=== PATIENT | female | born 1980 | race African-American/Black ===

== ENCOUNTER 2021-10-27 15:15 | Outpatient (RCR) | payer OTHER, SELFPAY ==
--- NOTE | 2021-10-27 17:37 | PTOPEVAL ---
PHYSICAL THERAPY EVALUATION AND PLAN OF CARE Thank you for referring Sebas Landon to [facility].? The patient is scheduled to be seen for therapy? every other week for 6 weeks (3visits). Please review, sign, date and return this plan of care MAGALY. I agree with and certify that the following plan of care is medically necessary. Referring Physician Date Attending Provider: Elizabeth Godfrey Diagnosis low back pain, chronic Onset 04/2021 Subjective Information States low back pain Query Text:As Reported By Patient/ persistenting for about a year Family . States that around that time she started a parts manager job working for [employer] and she states she is standing for long periods of time. States there is a lot of tightness in the lower back. Bending over forward helps it to feel like there is a relief. States she also has symptoms in her left leg that start at the hip and goes to the left knee. Will sometimes experience the tightness in the low back and the leg pain at the same time. The leg pain occurs most often when laying on either side. Spine, Lumbar Reported Pain Level 3 Pain Description Tightness Pain Frequency Chronic,Continuous Greatest Pain Intensity 7 Additional Pain Comments the left leg pain can be as high as 8/10. Water Modality Lumbar ROM Lumbar Flexion Active Floor Query Text:Hands to: Lumbar Extension (0-40) 15 Query Text:Active in Degrees Lumbar Comments hinging at L3 with limited motion below L3 Gross Lower Extremity Range of Motion left hip internal rotation Comments limited compared to right, nonpainful Hip Strength Left Hip Flexion Strength 4 Good Hip Extension Strength 3+ Fair + Hip Abduction Strength 3+ Fair + Hip Adduction Strength 3+ Fair + Hip Strength Comments single leg stand: left SLS falls into a hip drop while right maintains neutral position Right Hip Flexion Strength 5 Normal Hip Extension Strength 4 Good Hip Abduction Strength
--- NOTE | 2021-11-13 16:30 | PCPTNOTE ---
Patient did not show up for scheduled appointment this date; called patient who stated she forgot about appointment. Patient stated she left a voicemail yesterday to have notes sent to MD verified with front desk clerk stating they resent evaluation notes to ordering MD again yesterday. Reminded on next appointment 11/27 @ 4pm
--- NOTE | 2021-12-11 16:14 | PCPTNOTE ---
Patient did not show up for scheduled appointment this date.
--- NOTE | 2021-12-11 16:14 | PCPTNOTE ---
PHYSICAL THERAPY DISCHARGE NOTE Attending Provider: Elizabeth Godfrey Patient:Sebas Landon Date of :1980 Patient has not returned for any further treatments since 10/27/2021, therefore will be discharged at this time. Patient?s initial visit was on 10/27/2021 and had a total of 1 visit. [facility]. Please review, sign, date and return this discharge summary MAGALY. I have been updated about the patient's current status and I agree with discharge from the above service at this time. Referring Physician Date
== END 2021-12-12 08:39 | disposition home or self-care (01) ==
LOC: ANHPT 15:15
PROVIDERS: PCP Hospitalist
DX: M54.41 Lumbago with sciatica, right side (principal)
CPT/HCPCS: 97110; 97162

== ENCOUNTER → 2021-12-10 13:11 | Outpatient (CLI) | payer OTHER, SELFPAY ==
--- NOTE | ~2021-12-10 | XR_ITS ---
EXAMINATION: XR hip LT min 2V INDICATION: Left hip and flank pain TECHNIQUE: Two views of the left hip are obtained. COMPARISON: None available FINDINGS: There is mild osteoarthritis of the left hip. Phleboliths are noted in the pelvis. Bone ali gnment is normal. There is no fracture. IMPRESSION: 1. Mild osteoarthritis of the hip. Reviewed, dictated and finalized at location B.
--- NOTE | ~2021-12-10 | XR_ITS ---
EXAMINATION: XR lumbar spine min 4V DATE: 12/10/2021 13:54 INDICATION: Chronic back pain TECHNIQUE: Anteroposterior, lateral, and bilateral oblique views of the lumbar spine, and cone-down l ateral view of the lumbosacral junction were obtained. COMPARISON: None. FINDINGS: There are 2 mm of anterolisthesis of L4 on L5. The vertebral body heights are maintained. T here is moderate facet osteoarthritis of the lower lumbar spine. The intervertebral disc space height s are normal. IMPRESSION: 1. Moderate facet osteoarthritis of the lower lumbar spine without acute findings. Reviewed, dictated and finalized at location B. IMPRESSION: 1. Moderate facet osteoarthritis of the lower lumbar spine without acute findin .
== END ==
DX: R10.9 Unspecified abdominal pain (principal); G89.29 Other chronic pain; M54.42 Lumbago with sciatica, left side; M16.0 Bilateral primary osteoarthritis of hip; M47.896 Other spondylosis, lumbar region
CPT/HCPCS: 72110; 73502

== ENCOUNTER 2022-01-30 09:04 | Emergency (ER) | payer OTHER, SELFPAY ==
[2022-01-30] VITALS (19 sets, daily range): BP systolic 110–124; BP diastolic 68–74; PULSE 65–84; RESP 11–18; TEMP 37.1; O2SAT 99–100
--- NOTE | ~2022-01-30 | XR_ITS ---
EXAMINATION: XR chest 2V DATE: 01/30/2022 09:30 INDICATION: Chest pain TECHNIQUE: PA and lateral views of the chest are obtained. COMPARISON: None available FINDINGS: The lungs are free of acute opacities. No pleural effusion or pneumothorax. The cardiomedia stinal silhouette is normal. There is mild thoracic spondylosis. IMPRESSION: 1. No acute cardiopulmonary abnormality. Reviewed, dictated and finalized at location B.
--- NOTE | 2022-01-30 09:07 | ECG_ITS ---
Measurements Intervals [place] Rate: 77 P: 44 TX: 160 QRS: 21 QRSD: 78 T: 45 QT: 379 QTc: 429 Interpretive Statements SINUS RHYTHM NORMAL ELECTROCARDIOGRAM NO PREVIOUS ECG AVAILABLE FOR COMPARISON Electronically Signed On 01-30-2022 12:51:25 CDT by Jluis Kaba M.D.
[2022-01-30] MEDS: ASPIRIN 81 MG CHEWABLE TABLET 324 MG PO (09:22)
[2022-01-30 09:23] LABS: Basophils Percent Auto 0.3 % (0.2-1.2); Eosinophils Absolute Auto 0.4 K/mm3 (0-0.3); Hematocrit 41.1 % (37.0-47.0); Hemoglobin 13.3 g/dL (12.0-15.0); Immature Granulocyte Absolute 0.02 K/mm3 (0.00-0.031); Immature Granulocyte Percent A 0.3 % (0-0.5); Lymphocytes Absolute Auto 1.58 K/mm3 (0.9-3.2); Lymphocytes Percent Auto 27.2 % (18.3-44.2); Mean Corpuscular HGB Conc 32.4 g/dl (32-36); Mean Corpuscular Hemoglobin 28.1 pg (26-34); Mean Corpuscular Volume 86.9 fl (80-100); Mean Platelet Volume 9.5 fl (7.4-10.4); Monocytes Absolute Auto 0.4 K/mm3 (0.1-0.6); Monocytes Percent Auto 6.9 % (2.6-8.5); Neutrophils Absolute Auto 3.4 K/mm3 (1.3-6.7); Neutrophils Percent Auto 59.3 % (45.5-73.1); Platelet Count Result 303 k/mm3 (150-375); Red Blood Count 4.73 M/mm3 (4.2-5.4); Red Cell Distribution Width 13.9 % (11.5-14.5); White Blood Count 5.8 K/mm3 (4.5-10.0)
[2022-01-30 09:35] LABS: INR 1.2; Prothrombin Time 14.3 Seconds (11.1-14.7)
[2022-01-30 09:36] LABS: Partial Thromboplastin Time 27.7 SECONDS (22.3-36.8)
[2022-01-30 09:49] LABS: Alanine Aminotransferase 15 U/L (6-35); Albumin Level 4.1 g/dL (3.5-5.1); Alkaline Phosphatase 93 U/L (38-126); Anion Gap 8 mmol/L (8-16); Aspartate Amino Transferase 19 U/L (14-36); Bilirubin,Total 0.3 mg/dL (0.2-1.3); Blood Urea Nitrogen 14 mg/dL (7-17); Calcium 8.6 mg/dL (8.4-10.2); Carbon Dioxide 25 mmol/L (22-30); Chloride 103 mmol/L (98-107); Estimated CRCL calculation 110 ml/min; Estimated Glomerular Filt Rate > 60; Glucose 101 mg/dL (65-110); Lipase 46 U/L (23-300); Potassium 4.4 mmol/L (3.4-5.0); Sodium 136 mmol/L (137-145)
[2022-01-30 10:01] LABS: Troponin I < 0.012 ng/mL (0.000-0.034)
[2022-01-30] MEDS: KETOROLAC 15 MG/ML VIAL (*BKC) IV PUSH (11:13)
--- NOTE | 2022-01-30 11:38 | PC.NURSE ---
Assumed pt from PIO Lara
[2022-01-30 12:50] LABS: Troponin I < 0.012 ng/mL (0.000-0.034)
--- NOTE | 2022-01-30 13:38 | ED.CHESTPAIN ---
HPI - Chest Pain General Chief Complaint: Chest Pain Stated Complaint: chest pain Time Seen by Provider: 01/30/22 09:06 History of Present Illness HPI narrative: Patient is a 41-year-old female who presents ER with left-sided chest pain. Began early this morning around 7:30 AM. Aching and nonradiating. No exertional component. Has not found any aggravating or alleviating factors. No burning reflux. No diaphoresis/shortness of breath/nausea/vomiting. No family history of heart disease. No personal history of heart disease. Related Data Allergies Allergy/AdvReac Type Severity Reaction Status Date / Time shellfish derived Allergy Itching Verified 01/30/22 09:14 Review of Systems Review of Systems: All systems reviewed & are unremarkable except as noted in HPI and below Constitutional: Constitutional: Denies chills, Denies fatigue and Denies fever(s) ENT: Denies nasal congestion and Denies sore throat Cardiovascular: Cardiovascular: Reports chest pain, Denies rapid heart rate and Denies radiating jaw, neck or arm pain Respiratory: Respiratory: Denies cough, Denies dyspnea and Denies wheezing Gastrointestinal: Gastrointestinal: Denies abdominal pain, Denies nausea and Denies vomiting Neurologic: Denies focal weakness and Denies numbness PMFSH Past Medical History Medical History (Updated 01/30/22 @ 13:41 by Ramón Howell MD) Healthy female adult Surgical History Surgical History (Updated 01/30/22 @ 13:41 by Ramón Howell MD) History of section Social History Social History (Updated 01/30/22 @ 13:41 by Ramón Howell MD) Smoking status: Never smoker Exam Narrative: GENERAL: Well-appearing, well-nourished, and in no acute distress. HEAD: Normocephalic, atraumatic. EYES: PERRL and EOMI. CHEST: Clear to auscultation. No respiratory distress. HEART: Regular rate and rhythm. Normal peripheral pulses. ABDOMEN: Soft, nontender, nondistended. EXTREMITIES: Normal range of motion. No edema. SKIN: Warm, dry, no rash. NEURO: Alert and oriented x3. PSYCH: Normal mood and affect. Course Course Emergency Course: Informed of results. Discharge home. [place] appropriate for outpatient follow-up. Vital Signs Vital signs: Vital Signs Temperature 98.8 F 01/30/22 09:08 Pulse Rate 82 01/30/22 09:08 Respiratory Rate 18 01/30/22 09:08 Blood Pressure 124/74 01/30/22 09:08 Pulse Oximetry 100 01/30/22 09:08 Oxygen Delivery Room Air 01/30/22 09:08 Temperature 98.8 F 01/30/22 09:08 Pulse Rate 84 01/30/22 09:12 Respiratory Rate 18 01/30/22 09:08 Blood Pressure 124/74 01/30/22 09:08 Pulse Oximetry 100 01/30/22 09:08 Oxygen Delivery Room Air 01/30/22 09:08 MDM - Chest Pain Lab Data Result diagrams: 01/30/22 09:15 01/30/22 09:33 Labs: Lab Results 01/30/22 01/30/22 01/30/22 Range/Units 09:15 09:15 09:33 WBC 5.8 (4.5-10.0) K/mm3 RBC 4.73 (4.2-5.4) M/mm3 Hgb 13.3 (12.0-15.0) g/dL Hct 41.1 (37.0-47.0) % MCV 86.9 (80-100) fl MCH 28.1 (26-34) pg MCHC 32.4 (32-36) g/dl RDW 13.9 (11.5-14.5) % Plt Count 303 (150-375) k/mm3 MPV 9.5 (7.4-10.4) fl Immature Gran % (Auto) 0.3 (0-0.5) % Neut % (Auto) 59.3 (45.5-73.1) % Lymph % (Auto) 27.2 (18.3-44.2) % [place] % (Auto) 6.9 (2.6-8.5) % Eos % (Auto) 6.0 H (0-4.4) % Baso % (Auto) 0.3 (0.2-1.2) % Lymph # (Auto) 1.58 (0.9-3.2) K/mm3 [place] # (Auto) 0.4 (0.1-0.6) K/mm3 Eos # (Auto) 0.4 H (0-0.3) K/mm3 Baso # (Auto) 0.0 (0.0-0.1) K/mm3 Abs Immat Gran (auto) 0.02 (0.00-0.031) K/mm3 Absolute Neuts (auto) 3.4 (1.3-6.7) K/mm3 Absolute Nucleated RBC 0.0 (0.0-0.012) K/mm3 Nucleated RBC % 0.0 (0.0-0.2) % PT 14.3 (11.1-14.7) Seconds INR 1.2 APTT 27.7 (22.3-36.8) SECONDS Sodium 136 L (137-145) mmol/L Potassium 4.4 (3.4-5.0) mmol/L Chloride
== END 2022-01-30 13:57 | disposition home or self-care (01) ==
PROVIDERS: Emergency Provider Emergency Medicine
DX: R07.89 Other chest pain (principal)
CPT/HCPCS: 36415; 71046; 80053; 83690; 84484; 85025; 85610; 85730; 93005; 96374; 99284; A9270; J1885

== ENCOUNTER 2022-07-29 09:19 | Outpatient (CLI) | payer OTHER, SELFPAY ==
--- NOTE | ~2022-07-29 | XR_ITS ---
Left foot Technique: AP, oblique, and lateral views were obtained. Clinical History: Pain Findings: No acute fracture or dislocation is seen. Osseous alignment is anatomic. Joint spaces are p reserved without erosive or degenerative change. Soft tissues are unremarkable. Impression: Unremarkable left foot radiographs. Reviewed, dictated and finalized at location . [facility] [place] Impression: Unremarkable left foot radiographs.
--- NOTE | ~2022-07-29 | XR_ITS ---
Right foot Technique: AP, oblique, and lateral views were obtained. Clinical History: Pain Findings: No acute fracture or dislocation is seen. Osseous alignment is anatomic. Joint spaces are p reserved without erosive or degenerative change. Soft tissues are unremarkable. Impression: Unremarkable right foot radiographs. Reviewed, dictated and finalized at location . [employer]G UNIT [employer]PER[employer] Impression: Unremarkable right foot radiographs.
== END 2022-07-29 09:20 | disposition home or self-care (01) ==
LOC: ANHIMG 09:19
DX: M79.671 Pain in right foot (principal); M79.672 Pain in left foot
CPT/HCPCS: 73630

== ENCOUNTER 2023-04-14 22:34 | Emergency (ER) | payer MEDICAID, SELFPAY ==
--- NOTE | ~2023-04-14 | XR_ITS ---
Portable chest x-ray Comparison: 01/30/2022 Clinical History: Chest pain Findings: Lungs are clear, without focal consolidation or pleural effusion. Cardiomediastinal silho uette is stable. Bones and soft tissues are unremarkable. Impression: Normal chest. Reviewed, dictated and finalized at [facility]. UE TESTER Impression: Normal chest.
[2023-04-14 22:35] VITALS: BP 127/80; PULSE 74; RESP 20; TEMP 36.9; O2SAT 100
--- NOTE | 2023-04-14 22:37 | ECG_ITS ---
Measurements Intervals [place] Rate: 71 P: 46 ID: 160 QRS: 30 QRSD: 86 T: 57 QT: 388 QTc: 423 Interpretive Statements SINUS RHYTHM NORMAL ECG COMPARED TO ECG 01/30/2022 09:13:52 NO SIGNIFICANT CHANGES Electronically Signed On 04-15-2023 7:10:11 [employer] by Srikanth Hercules D.O.
[2023-04-15 00:57] LABS: Basophils Absolute Auto 0.1 K/mm3 (0.0-0.1); Basophils Percent Auto 0.8 % (0.2-1.2); Eosinophils Absolute Auto 0.5 K/mm3 (0-0.3); Eosinophils Percent Auto 8.5 % (0-4.4); Hematocrit 38.9 % (37.0-47.0); Hemoglobin 12.3 g/dL (12.0-15.0); Immature Granulocyte Absolute 0.02 K/mm3 (0.00-0.031); Immature Granulocyte Percent A 0.3 % (0-0.5); Lymphocytes Absolute Auto 2.71 K/mm3 (0.9-3.2); Lymphocytes Percent Auto 42.7 % (18.3-44.2); Mean Corpuscular HGB Conc 31.6 g/dl (32-36); Mean Corpuscular Hemoglobin 26.9 pg (26-34); Mean Corpuscular Volume 84.9 fl (80-100); Mean Platelet Volume 9.4 fl (7.4-10.4); Monocytes Absolute Auto 0.5 K/mm3 (0.1-0.6); Monocytes Percent Auto 7.2 % (2.6-8.5); Neutrophils Absolute Auto 2.6 K/mm3 (1.3-6.7); Neutrophils Percent Auto 40.5 % (45.5-73.1); Platelet Count Result 282 k/mm3 (150-375); Red Blood Count 4.58 M/mm3 (4.2-5.4); White Blood Count 6.4 K/mm3 (4.5-10.0)
--- NOTE | 2023-04-15 00:58 | ED.GENADULT ---
HPI - General Adult General Chief complaint: Chest Pain Stated complaint: chest pain Time Seen by Provider: 04/15/23 00:04 History of Present Illness HPI narrative: Patient 42-year-old female who presents the emergency department with chief complaint of chest pain. Patient states for the last several weeks she has had discomfort in her chest patient states the area is tender to touch and reports that it does get worse with certain movements. Patient reports she has been seen by her primary care provider who did an EKG and told her that the EKG was negative. Patient states that the pain has gotten a little bit more frequent and has been pretty well constant for the last 3 days. Patient reports no trauma denies significant past medical history denies prior history of cardiac disease reports that she has no family history for early cardiac disease. Related Data Allergies Allergy/AdvReac Type Severity Reaction Status Date / Time shellfish derived Allergy Itching Verified 01/30/22 09:14 Review of Systems Review of Systems: A 10 system review of systems was completed on the patient and is negative except for what is stated in the HPI. Nursing and ancillary documentation was reviewed. PMFSH Past Medical History Medical History Healthy female adult Surgical History Surgical History History of section Social History Social History Smoking status: Never smoker Exam Narrative: GENERAL: Well-appearing, well-nourished, and in no acute distress. HEAD: Normocephalic, atraumatic. EYES: PERRLA and EOMI. ENT: Nares clear, no rhinorrhea or epistaxis. Mucous membranes moist. NECK: Supple. CHEST: Clear to auscultation. No respiratory distress. Slight chest wall tenderness to palpation on the left sternal border HEART: Regular rate and rhythm. No murmur heard. Normal peripheral pulses. ABDOMEN: Soft, nontender, nondistended, normal active bowel sounds. EXTREMITIES: Normal range of motion. No edema. SKIN: Warm, dry, no rash. NEURO: No focal deficits. Alert and oriented x3. PSYCH: Normal mood and affect. Course Vital Signs Vital signs: Vital Signs Temperature 36.9 C 11/08/23 22:35 Pulse Rate 74 04/14/23 22:35 Respiratory Rate 20 04/14/23 22:35 Blood Pressure 127/80 04/14/23 22:35 Pulse Oximetry 100 04/14/23 22:35 Oxygen Delivery Room Air 04/14/23 22:35 Temperature 36.9 C 04/14/23 22:35 Pulse Rate 74 04/14/23 22:35 Respiratory Rate 20 04/14/23 22:35 Blood Pressure 127/80 04/14/23 22:35 Pulse Oximetry 100 04/14/23 22:35 Oxygen Delivery Room Air 04/14/23 22:35 Medical Decision Making MDM Narrative Medical decision making narrative: Differential diagnosis includes ACS, chest wall pain, pneumothorax, pancreatitis Laboratory studies were obtained on the patient which were within normal limits troponin was negative EKG showed no acute ischemic changes Chest x-ray showed no focal finding Vital Signs Vital Signs: Vital Signs Temperature 36.9 C 04/14/23 22:35 Pulse Rate 74 04/14/23 22:35 Respiratory Rate 20 04/14/23 22:35 Blood Pressure 127/80 04/14/23 22:35 Pulse Oximetry 100 04/14/23 22:35 Oxygen Delivery Room Air 04/14/23 22:35 Temperature 36.9 C 04/14/23 22:35 Pulse Rate 74 04/14/23 22:35 Respiratory Rate 20 04/14/23 22:35 Blood Pressure 127/80 04/14/23 22:35 Pulse Oximetry 100 04/14/23 22:35 Oxygen Delivery Room Air 04/14/23 22:35 Lab Data 04/15/23 00:47 04/15/23 00:47 Labs: Lab Results 04/15/23 Range/Units 00:47 WBC Pending RBC Pending Hgb Pending Hct Pending MCV Pending MCH Pending MCHC Pending RDW Pending Plt Count Pending MPV Pending
[2023-04-15 01:05] VITALS: PULSE 77
[2023-04-15 01:25] LABS: Alanine Aminotransferase 19 U/L (6-35); Albumin Level 3.9 g/dL (3.5-5.1); Alkaline Phosphatase 94 U/L (38-126); Anion Gap 4 mmol/L (8-16); Aspartate Amino Transferase 24 U/L (14-36); Bilirubin,Total 0.3 mg/dL (0.2-1.3); Blood Urea Nitrogen 16 mg/dL (7-17); Calcium 9.1 mg/dL (8.4-10.2); Carbon Dioxide 28 mmol/L (22-30); Chloride 105 mmol/L (98-107); Estimated CRCL calculation 115 ml/min; Estimated Glomerular Filt Rate > 60; Glucose 112 mg/dL (65-110); Lipase 66 U/L (23-300); Magnesium 1.7 mg/dL (1.6-2.3); Potassium 3.6 mmol/L (3.4-5.0); Sodium 137 mmol/L (137-145)
[2023-04-15 01:35] LABS: INR 1.1; Troponin I < 0.012 ng/mL (0.000-0.034)
[2023-04-15 01:37] LABS: Partial Thromboplastin Time 29.6 SECONDS (22.3-36.8)
[2023-04-15] MEDS: KETOROLAC 30 MG/ML VIAL (*BKC) IM (01:55)
[2023-04-15 02:03] VITALS: BP 121/78; PULSE 78; RESP 15; O2SAT 100
== END 2023-04-15 02:04 | disposition home or self-care (01) ==
PROVIDERS: Emergency Provider Emergency Medicine
DX: R07.89 Other chest pain (principal)
CPT/HCPCS: 36415; 71045; 80053; 83690; 83735; 84484; 85025; 85610; 85730; 93005; 96372; 99284; J1885

== ENCOUNTER 2023-10-07 22:17 | Emergency (ER) | payer OTHER, MEDICAID, SELFPAY ==
--- NOTE | ~2023-10-07 | XR_ITS ---
EXAMINATION: XR chest 2V DATE: 10/07/2023 22:38 INDICATION: Left chest pain. TECHNIQUE: Frontal and lateral views of the chest were obtained. COMPARISON: Chest single view 04/15/2023 FINDINGS: There is no pneumonia, pleural effusion, or pneumothorax. The heart size is normal. IMPRESSION: 1. No acute cardiopulmonary disease. Reviewed, dictated and finalized at location E.
[2023-10-07 22:20] VITALS: BP 124/78; PULSE 96; RESP 15; TEMP 36.4; O2SAT 100
--- NOTE | 2023-10-07 22:24 | ECG_ITS ---
SEE SCANNED COPY FOR CONFIRMED REPORT MTDD
[2023-10-07 22:30] LABS: Basophils Percent Auto 0.6 % (0.2-1.2); Eosinophils Absolute Auto 0.5 K/mm3 (0-0.3); Eosinophils Percent Auto 8.4 % (0-4.4); Hemoglobin 13.5 g/dL (12.0-15.0); Immature Granulocyte Absolute 0.01 K/mm3 (0.00-0.031); Immature Granulocyte Percent A 0.2 % (0-0.5); Lymphocytes Percent Auto 41.9 % (18.3-44.2); Mean Corpuscular HGB Conc 33.8 g/dl (32-36); Mean Corpuscular Hemoglobin 29.3 pg (26-34); Mean Corpuscular Volume 86.8 fl (80-100); Mean Platelet Volume 9.4 fl (7.4-10.4); Monocytes Absolute Auto 0.4 K/mm3 (0.1-0.6); Monocytes Percent Auto 6.3 % (2.6-8.5); Neutrophils Absolute Auto 2.6 K/mm3 (1.3-6.7); Neutrophils Percent Auto 42.6 % (45.5-73.1); Platelet Count Result 295 k/mm3 (150-375); Red Blood Count 4.61 M/mm3 (4.2-5.4); Red Cell Distribution Width 13.5 % (11.5-14.5); White Blood Count 6.2 K/mm3 (4.5-10.0)
[2023-10-07 22:41] LABS: INR 1.1; Prothrombin Time 14.3 Seconds (11.1-14.7)
[2023-10-07 22:42] LABS: Partial Thromboplastin Time 28.6 Seconds (22.3-36.8)
[2023-10-07 22:59] LABS: Alanine Aminotransferase 24 U/L (6-35); Albumin Level 4.2 g/dL (3.5-5.1); Alkaline Phosphatase 94 U/L (38-126); Anion Gap 9 mmol/L (4-12); Aspartate Amino Transferase 27 U/L (14-36); Bilirubin,Total 0.4 mg/dL (0.2-1.3); Blood Urea Nitrogen 11 mg/dL (7-17); Calcium 9.5 mg/dL (8.4-10.2); Carbon Dioxide 24 mmol/L (22-30); Chloride 108 mmol/L (98-107); Estimated CRCL calculation 96 ml/min; Estimated Glomerular Filt Rate > 60; Glucose 124 mg/dL (65-110); Sodium 141 mmol/L (137-145)
[2023-10-07 23:14] LABS: Troponin I < 0.012 ng/mL (0.000-0.034)
--- NOTE | 2023-10-07 23:14 | ED.GENADULT ---
HPI - General Adult General Chief complaint: Chest Pain Stated complaint: chest pain Time Seen by Provider: 10/07/23 22:19 History of Present Illness HPI narrative: Patient 43-year-old female who presents emergency department with chief complaint of chest pain that radiates to the back. Patient reports this has been ongoing for 3 days reports that feels as though there is a musculoskeletal type pain in the anterior portion of her chest patient states that she has had a similar episode passes treated with muscle relaxers of the reports that she decided after it has been going on for 3 days that she should come into the emergency department the patient reports she does have prior history of high cholesterol but does not take her medications on a regular basis reports no prior history of cardiac disease Related Data Allergies Allergy/AdvReac Type Severity Reaction Status Date / Time shellfish derived Allergy Itching Verified 01/30/22 09:14 Review of Systems Review of Systems: A 10 system review of systems was completed on the patient and is negative except for what is stated in the HPI. Nursing and ancillary documentation was reviewed. PMFSH Past Medical History Medical History Healthy female adult Surgical History Surgical History History of section Social History Social History Smoking status: Never smoker Exam Narrative: GENERAL: Well-appearing, well-nourished, and in no acute distress. HEAD: Normocephalic, atraumatic. EYES: PERRLA and EOMI. ENT: Nares clear, no rhinorrhea or epistaxis. Mucous membranes moist. NECK: Supple. CHEST: Clear to auscultation. No respiratory distress. HEART: Regular rate and rhythm. No murmur heard. Normal peripheral pulses. ABDOMEN: Soft, nontender, nondistended, normal active bowel sounds. EXTREMITIES: Normal range of motion. No edema. SKIN: Warm, dry, no rash. NEURO: No focal deficits. Alert and oriented x3. PSYCH: Normal mood and affect. Course Vital Signs Vital signs: Vital Signs Temperature 36.4 C 10/07/23 22:20 Pulse Rate 96 10/07/23 22:20 Respiratory Rate 15 10/07/23 22:20 Blood Pressure 124/78 10/07/23 22:20 Pulse Oximetry 100 10/07/23 22:20 Oxygen Delivery Room Air 10/07/23 22:20 Temperature 36.4 C 10/07/23 22:20 Pulse Rate 86 10/07/23 23:27 Respiratory Rate 15 10/07/23 23:27 Blood Pressure 104/60 10/07/23 23:27 Pulse Oximetry 98 10/07/23 23:27 Oxygen Delivery Room Air 10/07/23 22:20 Medical Decision Making [facility] Narrative Medical decision making narrative: differential diagnosis includes ACS, atypical chest pain, chest wall pain, gastroesophageal reflux disease, EKG showed sinus rhythm with no evidence of acute ST elevation or ST depression chest x-ray showed no focal infiltrate laboratory studies were obtained on the patient showed a normal CBC normal CMP lipase was normal troponin was negative at 0 hour and 3 hours Vital Signs Vital Signs: Vital Signs Temperature 36.4 C 10/07/23 22:20 Pulse Rate 96 10/07/23 22:20 Respiratory Rate 15 10/07/23 22:20 Blood Pressure 124/78 10/07/23 22:20 Pulse Oximetry 100 10/07/23 22:20 Oxygen Delivery Room Air 10/07/23 22:20 Temperature 36.4 C 10/07/23 22:20 Pulse Rate 86 10/07/23 23:27 Respiratory Rate 15 10/07/23 23:27 Blood Pressure 104/60 10/07/23 23:27 Pulse Oximetry 98 10/07/23 23:27 Oxygen Delivery Room Air 10/07/23 22:20 Lab Data 10/07/23 22:25 10/07/23 22:25 Labs: Lab Results 10/07/23 10/08/23 Range/Units 22:25 01:21 WBC 6.2 (4.5-10.0) K/mm3 RBC 4.61 (4.2-5.4) M/mm3 Hgb 13.5 (12.0-15.0) g/dL Hct 40.0 (37.0-47.0) % MCV 86.8 (80-100) fl MCH 29.
[2023-10-07 23:27] VITALS: BP 104/60; PULSE 86; RESP 15; O2SAT 98
[2023-10-07 23:53] LABS: Lipase 88 U/L (23-300)
--- NOTE | 2023-10-08 01:26 | ECG_ITS ---
SEE SCANNED COPY FOR CONFIRMED REPORT MTDD
[2023-10-08 01:47] LABS: Troponin I < 0.012 ng/mL (0.000-0.034)
[2023-10-08 02:07] VITALS: BP 108/62; PULSE 77; RESP 15; O2SAT 99
== END 2023-10-08 02:09 | disposition home or self-care (01) ==
PROVIDERS: Emergency Provider Emergency Medicine
DX: R07.89 Other chest pain (principal)
CPT/HCPCS: 36415; 71046; 80053; 83690; 84484; 85025; 85610; 85730; 93005; 99284